=== PATIENT | male | born 1970 | race Two or more races ===

== ENCOUNTER 2020-03-06 16:42 | Outpatient (CLI) | payer OTHER | END 2020-03-06 16:43 | disposition home or self-care (01) | LOC: COV 16:42 | PROVIDERS: ATTEND Family Medicine | DX: R05 Cough (principal); M79.10 Myalgia, unspecified site; R53.83 Other fatigue; J02.9 Acute pharyngitis, unspecified; R09.81 Nasal congestion; Z20.828 Contact with and (suspected) exposure to other viral communicable diseases ==